=== PATIENT | female | born 1945 | race Caucasian/White ===

== ENCOUNTER 2017-09-07 13:07 | Emergency (ER) | payer MEDICARE ==
[~2017-09-07] VITALS: Ht 165.1 cm; Wt 90.0 kg
[~2017-09-07 13:07] MED LIST: ADLT ASA LOW81 MG PO; AMILORIDE5 MG PO; AMOXIL500 MG OR; ATROVENT NAS0.03 %; AUGMENTIN500TAB PO; AVELOX400 MG PO; AZITHROMYCIN250 MG PO; BABY ASPIRIN81 MG PO; CYCLOBENZAPR5 MG PO; DEXAMETHASON2 MG PO; DEXAMETHASON4 MG PO; FLEXERIL OR; FLEXERIL5 MG PO; HYDROCHLOROT25 MG OR; HYDROCHLOROT25 MG PO; KLOR-CON M2020 MEQ PO; LISINOPRIL10 MG PO; LORTAB 7.5 PO; LORTAB5 PO; MAGNESIUM-OX400 MG PO; MEDDOSEPAK OR; MELOXICAM15 MG PO; METOPROLOL SUCC50 MG PO; MUCINEX600 MG OR; NITROFURANTN100 M2 PO; PERCOCET 5/325M1 TAB PO; PREDNISONE10 MG PO; PROAIR HFA IN; PT DOESN'T KNOW MEDS; REVLIMID15 MG PO; SPIRIVA HANDIHALER INH; SPIRIVA IN; TOPROL XL25 MG OR; TRAMADOL HCL50 MG PO; ULTRAM50 MG OR; VELCADE3.5 MG IV; ZESTRIL10 M1 PO; ZESTRIL5 M1 PO; ZITHROMAX250 MG PO; ZOFRAN ODT4 MG SL; ZOMETA4 MG/5 ML IV; ZOVIRAX800 MG PO
[2017-09-07] MEDS ORDERED: ULTRAM50 M1 PO (14:26)
[2017-09-07] MEDS ORDERED: MEDDOSEPAK PO (14:26)
[2017-09-07] MEDS ORDERED: DEXAMETHASON2 MG PO (14:52)
[2017-09-07 15:11] VITALS: BP 138/85
== END 2017-09-07 15:00 | disposition home or self-care (01) ==
LOC: ED 13:07
DX: M19.031 Primary osteoarthritis, right wrist (principal); M25.531 Pain in right wrist

== ENCOUNTER 2018-03-21 05:28 | Observation (INO) | payer MEDICARE ==
[~2018-03-21] VITALS: Ht 165.1 cm; Wt 90.0 kg
[~2018-03-21 05:28] MED LIST changes: +MEDDOSEPAK PO; +ULTRAM50 M1 PO
[2018-03-21 06:41] LABS: HEMATOCRIT 34.4 % (37.0-47.0); IMMATURE GRANULOCYTES 0.7 % (0.0-1.0); MEAN CELL VOLUME 100.6 fL CALC (80.0-100.0); MEAN CORPUSCULAR HGB 32.2 pG CALC (26.0-32.0); NEUT# 2.96 thou/uL (2.00-7.15); RED BLOOD COUNT 3.42 mill/uL (4.20-5.60); RED CELL DISTRI WIDTH 14.1 % (11.5-15.5)
[2018-03-21 06:47] LABS: ALBUMIN 3.3 g/dL (3.2-5.0); ALKALINE PHOSPHATASE 168 u/l (38-126); ANION GAP 11 (6-22 (CALC)); BILIRUBIN, TOTAL 0.6 mg/dL (0.0-1.4); BUN 17 mg/dL (8-23); BUN/CREATININE RATIO 24 (12-20 (CALC)); CARBON DIOXIDE 29 mmol/l (22-30); CHLORIDE 108 mmol/l (95-108); CREATININE 0.7 mg/dL (0.5-1.0); GFR > 60 ML/MIN (>=60 (CALC)); GFR FOR AFR.AMER. > 60 ML/MIN (>=60 (CALC)); POTASSIUM 3.4 mmol/l (3.5-5.1); SGOT/AST 44 u/l (9-36); SGPT/ALT 57 u/l (11-66); SODIUM 144 mmol/l (137-146); TOTAL PROTEIN 6.1 g/dL (6.3-8.2)
[2018-03-21 06:57] LABS: D-DIMER 0.67 mg/L (0.19-0.60); PROTHROMBIN TIME 11.2 SECONDS (9.0-12.5)
[2018-03-21] MEDS ORDERED: [UNRECOGNIZED DRUG - OTHER] (07:07)
[2018-03-21 10:45] VITALS: BP 142/70
[2018-03-21 12:05] LABS: CHOLESTEROL HDL RATIO 2.1 (<4.4 (CALC)); MAGNESIUM 1.7 mg/dL (1.6-2.3)
[2018-03-21 16:23] VITALS: BP 127/54
[2018-03-21] MEDS ORDERED: LENALIDOMIDE PO (16:25)
[2018-03-21] MEDS ORDERED: LASIX20 MG PO (17:11)
[2018-03-21 20:00] VITALS: BP 129/67
[2018-03-22 00:08] VITALS: BP 134/57
[2018-03-22 04:26] VITALS: BP 137/75
[2018-03-22 06:16] LABS: HEMATOCRIT 31.3 % (37.0-47.0); HEMOGLOBIN 10.1 g/dl (12.0-16.0); IMMATURE GRANULOCYTES 0.6 % (0.0-1.0); MEAN CELL VOLUME 100.3 fL CALC (80.0-100.0); MEAN CORPUSCULAR HGB 32.4 pG CALC (26.0-32.0); MEAN CORPUSCULAR HGB CONC 32.3 g/L CALC (32.0-36.0); NEUT# 2.51 thou/uL (2.00-7.15); RED BLOOD COUNT 3.12 mill/uL (4.20-5.60); RED CELL DISTRI WIDTH 14.3 % (11.5-15.5)
[2018-03-22 06:27] LABS: ANION GAP 11 (6-22 (CALC)); BUN 14 mg/dL (8-23); BUN/CREATININE RATIO 20 (12-20 (CALC)); CARBON DIOXIDE 27 mmol/l (22-30); CHLORIDE 110 mmol/l (95-108); CREATININE 0.7 mg/dL (0.5-1.0); GFR > 60 ML/MIN (>=60 (CALC)); GFR FOR AFR.AMER. > 60 ML/MIN (>=60 (CALC)); MAGNESIUM 1.6 mg/dL (1.6-2.3); POTASSIUM 3.5 mmol/l (3.5-5.1); SODIUM 144 mmol/l (137-146)
[2018-03-22 07:45] VITALS: BP 140/73
[2018-03-22 11:00] VITALS: BP 144/74
== END 2018-03-22 13:40 | disposition home or self-care (01) ==
LOC: ED 05:28 → ED-I 09:13 → ED 09:26 → MS2 09:27
PROVIDERS: Family Medicine; Nurse Practitioner Family; ADMIT Internal Medicine; ATTEND Internal Medicine
DX: R07.9 Chest pain, unspecified (principal); M25.512 Pain in left shoulder; C90.00 Multiple myeloma not having achieved remission; I10 Essential (primary) hypertension; M19.90 Unspecified osteoarthritis, unspecified site; J44.9 Chronic obstructive pulmonary disease, unspecified; E87.6 Hypokalemia; D61.818 Other pancytopenia; D64.9 Anemia, unspecified; Z79.899 Other long term (current) drug therapy; Z87.891 Personal history of nicotine dependence; R06.02 Shortness of breath
CPT/HCPCS: Q9967

== ENCOUNTER 2018-05-02 12:37 | Emergency (ER) | payer MEDICARE ==
[~2018-05-02] VITALS: Ht 165.1 cm; Wt 100.0 kg
[~2018-05-02 12:37] MED LIST changes: +LASIX20 MG PO; +LENALIDOMIDE PO; +[UNRECOGNIZED DRUG - OTHER]
[2018-05-02 13:14] LABS: HEMATOCRIT 36.1 % (37.0-47.0); HEMOGLOBIN 11.4 g/dl (12.0-16.0); IMMATURE GRANULOCYTES 0.4 % (0.0-1.0); MEAN CELL VOLUME 99.2 fL CALC (80.0-100.0); MEAN CORPUSCULAR HGB 31.3 pG CALC (26.0-32.0); MEAN CORPUSCULAR HGB CONC 31.6 g/L CALC (32.0-36.0); NEUT# 3.11 thou/uL (2.00-7.15); RED BLOOD COUNT 3.64 mill/uL (4.20-5.60); RED CELL DISTRI WIDTH 14.7 % (11.5-15.5)
[2018-05-02 13:30] LABS: ALBUMIN 3.6 g/dL (3.2-5.0); BILIRUBIN, TOTAL 1.3 mg/dL (0.0-1.4); CREATININE 1.3 mg/dL (0.5-1.0); POTASSIUM 4.2 mmol/l (3.5-5.1); TOTAL PROTEIN 6.9 g/dL (6.3-8.2)
[2018-05-02] MEDS ORDERED: CARBAMAZEPIN100 M1 PO (14:39)
[2018-05-02 14:41] VITALS: BP 137/60
== END 2018-05-02 15:06 | disposition home or self-care (01) ==
LOC: ED 12:37
PROVIDERS: Emergency Medicine
DX: R06.00 Dyspnea, unspecified (principal); B02.29 Other postherpetic nervous system involvement; M19.90 Unspecified osteoarthritis, unspecified site; I10 Essential (primary) hypertension; J44.9 Chronic obstructive pulmonary disease, unspecified; C90.00 Multiple myeloma not having achieved remission; Z92.21 Personal history of antineoplastic chemotherapy

== ENCOUNTER 2018-05-05 06:56 | Emergency (ER) | payer MEDICARE ==
[~2018-05-05] VITALS: Ht 165.1 cm; Wt 88.6 kg
[~2018-05-05 06:56] MED LIST changes: +CARBAMAZEPIN100 M1 PO
[2018-05-05 07:43] LABS: ALBUMIN 3.8 g/dL (3.2-5.0); BILIRUBIN, TOTAL 0.9 mg/dL (0.0-1.4); CREATININE 1.5 mg/dL (0.5-1.0); POTASSIUM 4.3 mmol/l (3.5-5.1); TOTAL PROTEIN 6.9 g/dL (6.3-8.2)
[2018-05-05 08:18] VITALS: BP 113/56
== END 2018-05-05 08:32 | disposition home or self-care (01) ==
LOC: ED 06:56 → ED-I 07:57 → ED 08:32
PROVIDERS: Emergency Medicine
DX: B02.29 Other postherpetic nervous system involvement (principal); R60.0 Localized edema; I10 Essential (primary) hypertension; J44.9 Chronic obstructive pulmonary disease, unspecified; C90.00 Multiple myeloma not having achieved remission; M19.90 Unspecified osteoarthritis, unspecified site; N28.9 Disorder of kidney and ureter, unspecified; Z91.14 Patient's other noncompliance with medication regimen; Z79.899 Other long term (current) drug therapy; R06.02 Shortness of breath

== ENCOUNTER 2018-07-25 20:41 | Emergency (ER) | payer OTHER, MEDICARE ==
[~2018-07-25] VITALS: Ht 165.1 cm; Wt 79.5 kg
[~2018-07-25 20:41] MED LIST changes: -LENALIDOMIDE PO; +REVLIMID PO
[2018-07-25 21:11] LABS: HEMATOCRIT 38.8 % (37.0-47.0); HEMOGLOBIN 12.4 g/dl (12.0-16.0); IMMATURE GRANULOCYTES 0.4 % (0.0-5.0); MEAN CELL VOLUME 96.5 fL CALC (80.0-100.0); MEAN CORPUSCULAR HGB 30.8 pG CALC (26.0-32.0); NEUT# 3.88 thou/uL (2.00-7.15); RED BLOOD COUNT 4.02 mill/uL (4.20-5.60); RED CELL DISTRI WIDTH 14.4 % (11.5-15.5)
[2018-07-25 21:30] LABS: ALBUMIN 3.7 g/dL (3.2-5.0); ALKALINE PHOSPHATASE 168 u/l (38-126); ANION GAP 9 (6-22 (CALC)); BILIRUBIN, TOTAL 0.9 mg/dL (0.0-1.4); BUN 13 mg/dL (8-23); BUN/CREATININE RATIO 18 (12-20 (CALC)); CARBON DIOXIDE 32 mmol/l (22-30); CHLORIDE 108 mmol/l (95-108); CREATININE 0.7 mg/dL (0.5-1.0); GFR > 60 ML/MIN (>=60 (CALC)); GFR FOR AFR.AMER. > 60 ML/MIN (>=60 (CALC)); SGOT/AST 54 u/l (9-36); SGPT/ALT 51 u/l (11-66); SODIUM 146 mmol/l (137-146); TOTAL PROTEIN 6.6 g/dL (6.3-8.2)
[2018-07-25 21:33] LABS: POTASSIUM 3.2 mmol/l (3.5-5.1)
[2018-07-25 22:39] LABS: URINE BILIRUBIN - DIPSTICK NEGATIVE (NEGATIVE); URINE BLOOD DIPSTICK TRACE-LYSED (NEGATIVE); URINE COLOR YELLOW; URINE GLUCOSE - DIPSTICK NEGATIVE (NEGATIVE); URINE KETONE NEGATIVE (NEGATIVE); URINE NITRITE - DIPSTICK NEGATIVE (Negative); URINE PROTEIN - DIPSTICK TRACE mg/dL (NEG-TRACE); URINE SPECIFIC GRAVITY 1.015; URINE UROBILINOGEN - DIPSTICK 0.2 E.U./dL (0.2)
[2018-07-25 22:40] LABS: URINE CLARITY CLOUDY; URINE LEUK ESTERASE SMALL (NEGATIVE)
[2018-07-25 22:45] LABS: URINE BACTERIA FEW hpf; URINE SQUAMOUS EPITHELIAL CELL MODERATE EPI/hpf (0-FEW)
[2018-07-25] MEDS ORDERED: FLEXERIL PO (23:42)
[2018-07-25] MEDS ORDERED: CIPROFLOXACN500 MG PO (23:42)
[2018-07-26 04:40] VITALS: BP 149/65
[2018-07-26] MEDS ORDERED: NAPROSYN500 MG PO (20:13)
== END 2018-07-26 00:34 | disposition home or self-care (01) | DRG 605 ==
LOC: ED 20:41
PROVIDERS: Emergency Medicine
DX: S30.1XXA Contusion of abdominal wall, initial encounter (principal); M47.812 Spondylosis without myelopathy or radiculopathy, cervical region; N39.0 Urinary tract infection, site not specified; C90.00 Multiple myeloma not having achieved remission; I10 Essential (primary) hypertension; J44.9 Chronic obstructive pulmonary disease, unspecified; V49.40XA Driver injured in collision with unspecified motor vehicles in traffic accident, initial encounter
CPT/HCPCS: Q9967

== ENCOUNTER 2018-07-26 19:10 | Emergency (ER) | payer OTHER, MEDICARE ==
[~2018-07-26] VITALS: Ht 165.1 cm; Wt 83.0 kg
[~2018-07-26 19:10] MED LIST changes: +CIPROFLOXACN500 MG PO; +FLEXERIL PO
[2018-07-26 20:11] VITALS: BP 128/66
[2018-07-26] MEDS ORDERED: NAPROSYN500 MG PO (20:13)
== END 2018-07-26 20:24 | disposition home or self-care (01) | DRG 554 ==
LOC: ED 19:10
DX: M19.031 Primary osteoarthritis, right wrist (principal); C90.00 Multiple myeloma not having achieved remission; I10 Essential (primary) hypertension; M19.90 Unspecified osteoarthritis, unspecified site; J44.9 Chronic obstructive pulmonary disease, unspecified; V89.2XXA Person injured in unspecified motor-vehicle accident, traffic, initial encounter

== ENCOUNTER 2018-07-30 02:16 | Emergency (ER) | payer OTHER, MEDICARE ==
[~2018-07-30] VITALS: Ht 165.1 cm; Wt 81.0 kg
[~2018-07-30 02:16] MED LIST changes: +NAPROSYN500 MG PO
[2018-07-30 03:37] VITALS: BP 128/64
== END 2018-07-30 03:30 | disposition home or self-care (01) | DRG 605 ==
LOC: ED 02:16
DX: S60.211A Contusion of right wrist, initial encounter (principal); S20.219A Contusion of unspecified front wall of thorax, initial encounter; C90.00 Multiple myeloma not having achieved remission; I10 Essential (primary) hypertension; J44.9 Chronic obstructive pulmonary disease, unspecified; M19.90 Unspecified osteoarthritis, unspecified site; V89.2XXA Person injured in unspecified motor-vehicle accident, traffic, initial encounter; Z92.21 Personal history of antineoplastic chemotherapy

== ENCOUNTER → 2018-08-10 | Outpatient (REF) | payer MEDICARE | END | disposition home or self-care (01) | LOC: MAMMO 10:49 | PROVIDERS: ATTEND Internal Medicine | DX: Z12.31 Encounter for screening mammogram for malignant neoplasm of breast (principal); N95.1 Menopausal and female climacteric states ==

== ENCOUNTER 2019-03-01 07:39 | Emergency (ER) | payer MEDICARE ==
[~2019-03-01] VITALS: Ht 165.1 cm; Wt 90.0 kg
[2019-03-01] MEDS ORDERED: OXYCODONE HCL5 MG PO (10:36)
[2019-03-01] MEDS ORDERED: MOTRIN400 MG PO (10:42)
[2019-03-01] MEDS ORDERED: CYCLOBENZAPR5 MG PO (10:42)
[2019-03-01 11:04] VITALS: BP 117/59
== END 2019-03-01 11:04 | disposition home or self-care (01) ==
LOC: ED 07:39
DX: M54.5 Low back pain (principal); M62.830 Muscle spasm of back; M51.36 Other intervertebral disc degeneration, lumbar region

== ENCOUNTER 2019-03-12 08:44 | Emergency (ER) | payer MEDICARE ==
[~2019-03-12] VITALS: Ht 165.1 cm; Wt 84.0 kg
[~2019-03-12 08:44] MED LIST changes: +MOTRIN400 MG PO; +OXYCODONE10 M1 PO
[2019-03-12] MEDS ORDERED: MAGNESIUM400 M1 PO (09:43)
[2019-03-12] MEDS ORDERED: VITAMIN D-3400 UNIT PO (09:44)
[2019-03-12 10:20] LABS: HEMATOCRIT 36.3 % (37.0-47.0); IMMATURE GRANULOCYTES 0.4 % (0.0-5.0); MEAN CELL VOLUME 95.3 fL CALC (80.0-100.0); MEAN CORPUSCULAR HGB 31.5 pG CALC (26.0-32.0); MEAN CORPUSCULAR HGB CONC 33.1 g/L CALC (32.0-36.0); NEUT# 4.99 thou/uL (2.00-7.15); RED BLOOD COUNT 3.81 mill/uL (4.20-5.60); RED CELL DISTRI WIDTH 14.2 % (11.5-15.5)
[2019-03-12 10:24] LABS: ALBUMIN 3.3 g/dL (3.2-5.0); ALKALINE PHOSPHATASE 163 u/l (38-126); ANION GAP 9 (6-22 (CALC)); BUN 13 mg/dL (8-23); BUN/CREATININE RATIO 21 (12-20 (CALC)); CARBON DIOXIDE 28 mmol/l (22-30); CHLORIDE 106 mmol/l (95-108); CREATININE 0.6 mg/dL (0.5-1.0); GFR > 60 ML/MIN (>=60 (CALC)); GFR FOR AFR.AMER. > 60 ML/MIN (>=60 (CALC)); POTASSIUM 3.5 mmol/l (3.5-5.1); SGOT/AST 42 u/l (9-36); SODIUM 140 mmol/l (137-146)
[2019-03-12 10:28] LABS: BILIRUBIN, TOTAL 1.4 mg/dL (0.0-1.4)
[2019-03-12 12:38] LABS: URINE BILIRUBIN - DIPSTICK NEGATIVE (NEGATIVE); URINE BLOOD DIPSTICK MODERATE (NEGATIVE); URINE CLARITY SL CLOUDY; URINE COLOR DK. YELLOW; URINE GLUCOSE - DIPSTICK NEGATIVE (NEGATIVE); URINE KETONE NEGATIVE (NEGATIVE); URINE LEUK ESTERASE TRACE (Negative); URINE NITRITE - DIPSTICK NEGATIVE (Negative); URINE PROTEIN - DIPSTICK NEGATIVE (NEG-TRACE); URINE SPECIFIC GRAVITY 1.025; URINE UROBILINOGEN - DIPSTICK 0.2 E.U./dL (0.2)
[2019-03-12 12:39] LABS: URINE EPITHELIAL CELLS FEW EPI/hpf (0-FEW); URINE WBC 0-2 WBC/hpf (0-5)
[2019-03-12] MEDS ORDERED: ULTRAM50 MG PO (12:49)
[2019-03-12] MEDS ORDERED: MEDDOSEPAK PO (12:49)
[2019-03-12] MEDS ORDERED: FLEXERIL PO ×2 (12:49→12:50)
[2019-03-12 12:53] VITALS: BP 127/60
== END 2019-03-12 13:05 | disposition home or self-care (01) ==
LOC: ED 08:44
PROVIDERS: Emergency Medicine
DX: M51.36 Other intervertebral disc degeneration, lumbar region (principal); M62.830 Muscle spasm of back; R50.9 Fever, unspecified

== ENCOUNTER 2019-03-21 13:43 | Emergency (ER) | payer MEDICARE ==
[~2019-03-21] VITALS: Ht 165.1 cm; Wt 82.0 kg
[~2019-03-21 13:43] MED LIST changes: +MAGNESIUM400 M1 PO; +ULTRAM50 MG PO; +VITAMIN D-3400 UNIT PO
[2019-03-21 15:00] LABS: HEMOGLOBIN 13.8 g/dl (12.0-16.0); IMMATURE GRANULOCYTES 0.5 % (0.0-5.0); MEAN CELL VOLUME 96.8 fL CALC (80.0-100.0); MEAN CORPUSCULAR HGB 31.2 pG CALC (26.0-32.0); MEAN CORPUSCULAR HGB CONC 32.2 g/L CALC (32.0-36.0); NEUT# 8.71 thou/uL (2.00-7.15); RED BLOOD COUNT 4.43 mill/uL (4.20-5.60); RED CELL DISTRI WIDTH 14.3 % (11.5-15.5)
[2019-03-21 15:01] LABS: HEMATOCRIT 42.9 % (37.0-47.0)
[2019-03-21 15:16] LABS: ALBUMIN 3.8 g/dL (3.2-5.0); ALKALINE PHOSPHATASE 154 u/l (38-126); ANION GAP 11 (6-22 (CALC)); BILIRUBIN, TOTAL 1.4 mg/dL (0.0-1.4); BUN 17 mg/dL (8-23); BUN/CREATININE RATIO 21 (12-20 (CALC)); CARBON DIOXIDE 29 mmol/l (22-30); CHLORIDE 103 mmol/l (95-108); CREATININE 0.8 mg/dL (0.5-1.0); GFR > 60 ML/MIN (>=60 (CALC)); GFR FOR AFR.AMER. > 60 ML/MIN (>=60 (CALC)); SGOT/AST 40 u/l (9-36); SODIUM 138 mmol/l (137-146); TOTAL PROTEIN 6.6 g/dL (6.3-8.2)
[2019-03-21 15:18] LABS: POTASSIUM 4.6 mmol/l (3.5-5.1)
[2019-03-21] MEDS ORDERED: DURAGESIC100 MCG/HR TOP (15:39)
[2019-03-21 15:40] VITALS: BP 122/62
[2019-03-21] MEDS ORDERED: FENTANYL50 MCG/HR TD (15:42)
== END 2019-03-21 16:14 | disposition home or self-care (01) ==
LOC: ED 13:43
PROVIDERS: Family Medicine
DX: M25.551 Pain in right hip (principal); R10.2 Pelvic and perineal pain; M19.90 Unspecified osteoarthritis, unspecified site; I10 Essential (primary) hypertension; J44.9 Chronic obstructive pulmonary disease, unspecified; C90.00 Multiple myeloma not having achieved remission

== ENCOUNTER 2019-11-06 | Emergency (ER) | payer MEDICARE ==
[~2019-11-06] MED LIST changes: +DURAGESIC100 MCG/HR TOP; +FENTANYL50 MCG/HR TD
== END 2019-11-06 20:08 | disposition home or self-care (01) ==
DX: S32.040A Wedge compression fracture of fourth lumbar vertebra, initial encounter for closed fracture (principal); I10 Essential (primary) hypertension; J44.9 Chronic obstructive pulmonary disease, unspecified; W01.0XXA Fall on same level from slipping, tripping and stumbling without subsequent striking against object, initial encounter; Y92.009 Unspecified place in unspecified non-institutional (private) residence as the place of occurrence of the external cause

== ENCOUNTER 2020-02-10 | Emergency (ER) | payer MEDICARE ==
[2020-02-10] MEDS ORDERED: KEFLEX500 MG PO (04:56)
== END 2020-02-10 05:05 | disposition home or self-care (01) ==
DX: C90.00 Multiple myeloma not having achieved remission (principal); M19.032 Primary osteoarthritis, left wrist; L03.114 Cellulitis of left upper limb; I10 Essential (primary) hypertension; J44.9 Chronic obstructive pulmonary disease, unspecified

== ENCOUNTER 2020-05-18 06:08 | Emergency (ER) | payer MEDICARE ==
[~2020-05-18] VITALS: Ht 165.1 cm; Wt 82.0 kg
[~2020-05-18 06:08] MED LIST changes: +KEFLEX500 MG PO
[2020-05-18 07:01] LABS: HEMATOCRIT 30.1 % (37.0-47.0); HEMOGLOBIN 9.7 g/dl (12.0-16.0); IMMATURE GRANULOCYTES 0.2 % (0.0-5.0); MEAN CELL VOLUME 98.7 fL CALC (80.0-100.0); MEAN CORPUSCULAR HGB 31.8 pG CALC (26.0-32.0); MEAN CORPUSCULAR HGB CONC 32.2 g/dL CAL (32.0-36.0); NEUT# 3.12 thou/uL (2.00-7.15); RED BLOOD COUNT 3.05 mill/uL (4.20-5.60); RED CELL DISTRI WIDTH 16.6 % (11.5-15.5)
[2020-05-18 07:17] LABS: ALBUMIN 3.1 g/dL (3.2-5.0); ALKALINE PHOSPHATASE 130 u/l (38-126); ANION GAP 5 (6-22 (CALC)); BILIRUBIN, TOTAL 1.5 mg/dL (0.0-1.4); BUN 15 mg/dL (8-23); BUN/CREATININE RATIO 22 (12-20 (CALC)); CARBON DIOXIDE 26 mmol/l (22-30); CHLORIDE 109 mmol/l (95-108); CREATININE 0.7 mg/dL (0.5-1.0); GFR > 60 ML/MIN (>=60 (CALC)); GFR FOR AFR.AMER. > 60 ML/MIN (>=60 (CALC)); POTASSIUM 3.2 mmol/l (3.5-5.1); SGOT/AST 34 u/l (9-36); SODIUM 138 mmol/l (137-146); TOTAL PROTEIN 5.5 g/dL (6.3-8.2)
[2020-05-18 08:59] LABS: URINE BILIRUBIN - DIPSTICK NEGATIVE (NEGATIVE); URINE BLOOD DIPSTICK TRACE-INTACT (NEGATIVE); URINE GLUCOSE - DIPSTICK NEGATIVE (NEGATIVE); URINE KETONE TRACE mg/dL (NEGATIVE); URINE LEUK ESTERASE NEGATIVE (NEGATIVE); URINE NITRITE - DIPSTICK NEGATIVE (Negative); URINE PH 5.5 (4.5-8.0); URINE PROTEIN - DIPSTICK NEGATIVE (NEG-TRACE); URINE SPECIFIC GRAVITY >=1.030; URINE UROBILINOGEN - DIPSTICK 0.2 E.U./dL (0.2)
[2020-05-18 09:02] LABS: URINE COLOR DK. YELLOW
[2020-05-18] MEDS ORDERED: IBUPROFEN600 MG PO ×2 (09:17)
[2020-05-18 09:21] VITALS: BP 137/63
== END 2020-05-18 09:33 | disposition home or self-care (01) ==
LOC: ED 06:08
PROVIDERS: Emergency Medicine
DX: S16.1XXA Strain of muscle, fascia and tendon at neck level, initial encounter (principal); I10 Essential (primary) hypertension; J44.9 Chronic obstructive pulmonary disease, unspecified; C90.00 Multiple myeloma not having achieved remission; G89.29 Other chronic pain; X58.XXXA Exposure to other specified factors, initial encounter; Z79.891 Long term (current) use of opiate analgesic

== ENCOUNTER 2020-08-08 10:37 | Observation (INO) | payer MEDICARE ==
[~2020-08-08] VITALS: Ht 165.1 cm; Wt 82.2 kg
[~2020-08-08 10:37] MED LIST changes: +IBUPROFEN600 MG PO
--- NOTE | 2020-08-08 10:45 | NUR ---
PT TO RM 9 VIA W/C AND PLACED ON PLANNING TECHNICIAN.
--- NOTE | 2020-08-08 11:41 | NUR ---
PT IS GAURDED AND STIFF FROM THE RIGHT ARM AND NECK. SHE STATES HAVING 10/10 PAIN. DENIES ANY OTHER S/S OR PAINS. PMS+ IN ALL EXTREM. REDNESS AND SWELLING NOTED ON THE RIGHT ADDISON. AFIBRILE. WILL CONTINUE TO MONITOR.
[2020-08-08 11:56] LABS: HEMATOCRIT 32.5 % (37.0-47.0); HEMOGLOBIN 10.5 g/dl (12.0-16.0); IMMATURE GRANULOCYTES 0.4 % (0.0-5.0); MEAN CORPUSCULAR HGB 32.3 pG CALC (26.0-32.0); MEAN CORPUSCULAR HGB CONC 32.3 g/dL CAL (32.0-36.0); NEUT# 3.48 thou/uL (2.00-7.15); RED BLOOD COUNT 3.25 mill/uL (4.20-5.60); RED CELL DISTRI WIDTH 14.6 % (11.5-15.5)
[2020-08-08 12:11] LABS: ALBUMIN 3.3 g/dL (3.2-5.0); ALKALINE PHOSPHATASE 188 u/l (38-126); ANION GAP 8 (6-22 (CALC)); BUN 13 mg/dL (8-23); BUN/CREATININE RATIO 17 (12-20 (CALC)); CARBON DIOXIDE 31 mmol/l (22-30); CHLORIDE 102 mmol/l (95-108); CREATININE 0.7 mg/dL (0.5-1.0); GFR > 60 ML/MIN (>=60 (CALC)); GFR FOR AFR.AMER. > 60 ML/MIN (>=60 (CALC)); POTASSIUM 3.2 mmol/l (3.5-5.1); SGOT/AST 48 u/l (9-36); SODIUM 138 mmol/l (137-146); TOTAL PROTEIN 6.1 g/dL (6.3-8.2)
[2020-08-08 12:12] LABS: BILIRUBIN, TOTAL 1.8 mg/dL (0.0-1.4)
--- NOTE | 2020-08-08 12:50 | NUR ---
PT ASSISTED TO BR VIA W/C. PROVIDED URINE. DARK YELLOW NOT CLOUDY. PT ASSISTED BACK TO ROOM AND RECONNECTED TO MONITORING EQUIPMENT
[2020-08-08 13:26] LABS: URINE BILIRUBIN - DIPSTICK NEGATIVE (NEGATIVE); URINE BLOOD DIPSTICK SMALL (NEGATIVE); URINE COLOR YELLOW; URINE GLUCOSE - DIPSTICK NEGATIVE (NEGATIVE); URINE KETONE NEGATIVE (NEGATIVE); URINE LEUK ESTERASE NEGATIVE (NEGATIVE); URINE NITRITE - DIPSTICK NEGATIVE (Negative); URINE PROTEIN - DIPSTICK NEGATIVE (NEG-TRACE); URINE SPECIFIC GRAVITY 1.015; URINE UROBILINOGEN - DIPSTICK 0.2 E.U./dL (0.2)
[2020-08-08 13:29] LABS: URINE EPITHELIAL CELLS FEW EPI/hpf (0-FEW); URINE RBC 0-2 RBC/hpf (0-5)
--- NOTE | 2020-08-08 13:50 | NUR ---
UPON REASSESSMENT PT STATES THAT HER PAIN IS A 8/10. DENIES ANY OTHER NEEDS
--- NOTE | 2020-08-08 14:30 | NUR ---
PT REMINDED OF PENDING ADMISSIONA AND WAIT TIME. WILL CONTINUE TO MONITOR.
--- NOTE | 2020-08-08 15:30 | NUR ---
PT RESTING ON STRETCHER. STATES PAIN REMAINS THE SAME. CALL LIGHT WITHIN REACH. ADISED OF CONTINUED WAIT
--- NOTE | 2020-08-08 16:40 | NUR ---
GAVE REPORT TO MARLY AND SHE STATES THAT ROOM IS DIRTY AND HAS TO BE CLEANED. PT UPDATED ON WAIT
--- NOTE | 2020-08-08 17:40 | NUR ---
PT TRANSPORTED TO MED SURG STABLE AND IN NO DISTRESS BY BUBBA.W/C. CARE ASSUMED BY MARLY
--- NOTE | 2020-08-08 17:47 | NUR ---
PT ARRIVED TO UNIT VIA WHEELCHAIR WITH ER STAFF; ALERT AND OREINTED X 3. PLACED IN AIRBORNE/CONTACT ISOLATION FOR SHINGLES. C/O SEVERE 10/10 PAIN TO RIGHT SHOULDER; REPORTS THAT SHE HAS HAD CHRONIC RIGHT SHOULDER PAIN FOR 4 YEARS THAT IS EXACERBATED AT THIS TIME AFTER SHE HAD SHINGLES. REPORTED AREA OF SINGLESI IS IN LEFT AXILLA; PHOTO TAKEN AND PLACED IN CHART. RESPIRATIONS SLIGHTLY LABORED; PT FREQUENTLY MOANING LOUDLY AND STATES THAT HER MILD SOB IS RELATED TO HER PAIN. IV SITE TO LAC APPEARS HEALTHY AND FLUSHES. RLE IS RED AND HOT WITH 2+ PITTING EDEMA; LLE NORMAL WITH 1+ ANKLE EDEMA; RIGHT LEG LARGER THAN LEFT; PHOTO IN CHART. PT ORIENTED TO ROOM AND CALL LIGHT SYSTEM. PLAN OF CARE DISCUSSED. PT ENCOURAGED TO VERBALIZE CONCERNS; REQUESTS PAIN MEDICATION. SAFETY MEASURES IN PLACE. CALL LIGHT WITHIN REACH.
[2020-08-08 18:09] VITALS: BP 112/55
[2020-08-08] MEDS ORDERED: BUMETANIDE1 MG PO (18:20)
[2020-08-08 19:00] VITALS: BP 121/63
--- NOTE | 2020-08-08 19:35 | NUR ---
MORPHINE AND ROXICODONE GIVEN FOR 10/10 RIGHT SHOULDER PAIN. PT RESTING ON LEFT SIDE AND GUARDING SHOULDER. CALL LIGHT WITHIN REACH.
--- NOTE | 2020-08-08 20:01 | NUR ---
RECEIEVED REPORT FROM DEMETRICE FINLEY. ASSESSMENT AND VITALS COMPLETED. RESPIRATIONS ARE STRONG BILATERALLY. LUNG SOUNDS ARE CLEAR. HEART RHYTHM IS NORMAL. BOWEL SOUNDS ARE ACTIVE, LAST REPORTED BM 08/07/20. RADIAL AND PEDAL PULSES ARE STRONG WITH NORMAL CPAILLARY REFILL. #20 IN LAC SALINE LOCKED, SITE APPEARS HEALTHY AND PATENT. PT PRESENTS WITH WOUND VAC ON RIGHT LEG. PT REPORTS PAIN IS MANAGED SINCE RECEIVING PNR MEDICATION JUST BEFORE SHIFT CHANGE. PT DENIES DISCOMFORTS AT THIS TIME. ALL SAFETY AND ISOLATION PRECAUTIONS ARE IN PLACE. WILL CONTINUE TO MONITOR.
--- NOTE | 2020-08-08 20:01 | NUR ---
RECEIEVED REPORT FROM DEMETRICE FINLEY. ASSESSMENT AND VITALS COMPLETED. RESPIRATIONS ARE STRONG BILATERALLY. LUNG SOUNDS ARE CLEAR. HEART RHYTHM IS NORMAL. BOWEL SOUNDS ARE ACTIVE, LAST REPORTED BM 08/07/20. RADIAL AND PEDAL PULSES ARE STRONG WITH NORMAL CPAILLARY REFILL. #20 IN LAC SALINE LOCKED, SITE APPEARS HEALTHY AND PATENT. PT REPORTS PAIN IS MANAGED SINCE RECEIVING PNR MEDICATION JUST BEFORE SHIFT CHANGE. PT DENIES DISCOMFORTS AT THIS TIME. ALL SAFETY AND ISOLATION PRECAUTIONS ARE IN PLACE. WILL CONTINUE TO MONITOR.
[2020-08-09] VITALS: BP 111/67
--- NOTE | 2020-08-09 00:29 | NUR ---
PT SEEN EYED CLOSED IN NO APPARENT DISTRESS OR DISCOMFORT. CALL GARCIA WITHIN REACH. WILL CONTINUE TO MONITOR.
[2020-08-09 04:00] VITALS: BP 127/75
--- NOTE | 2020-08-09 04:01 | NUR ---
PT REMAINS RESTING WITH EYES CLOSED. NO SIGNS OF DISTRESS. CALL LIGHT WITHIN REACH. WILL CONTINUE TO MONITOR.
--- NOTE | 2020-08-09 07:34 | NUR ---
PT note This patient is screeed for PT intervention and it is felt she would benefit from PT intervention as an outpatient for her right shoulder pain if medical agrees and when patinet is cleared
[2020-08-09 07:41] VITALS: BP 137/76
--- NOTE | 2020-08-09 08:07 | NUR ---
ASSESSMENT DONE. PT IS A&O X3 BUT FORGETFUL AT TIMES. TELE IN PLACE. PT STATED PAIN 08/16. MEDICATED PT WITH MORPHINE. PT DENIES ANY OTHER NEEDS AT THIS TIME. CALL LIGHT IN REACH.
--- NOTE | 2020-08-09 12:00 | NUR ---
PT REFUSING LUNCH. DIRECTOR INFORMATION SECURITY IN ROOM TO TAKE PT SNACKS. PT DENIES ANY OTHER NEEDS AT THIS TIME. CALL LIGHT IN REACH.
[2020-08-09 12:03] VITALS: BP 133/74
--- NOTE | 2020-08-09 15:09 | NUR ---
PT RESTING IN BED WITH NO S/S OF DISTRESS NOTED. CALL LIGHT IN REACH.
[2020-08-09 15:50] VITALS: BP 131/73
[2020-08-09 19:00] VITALS: BP 135/75
--- NOTE | 2020-08-09 20:01 | NUR ---
RECEIEVED REPORT FROM RN. ASSESSMENT AND VITALS COMPLETED. RESPIRATIONS ARE STRONG BILATERALLY. LUNG SOUNDS ARE CLEAR. HEART RHYTHM IS NORMAL. BOWEL SOUNDS ARE ACTIVE, LAST REPORTED BM 08/08/20. RADIAL AND PEDAL PULSES ARE STRONG WITH NORMAL CPAILLARY REFILL.#20 IN LAC SALINE LOCKED, SITE APPEARS HEALTHY AND PATENT. PT REPORTS PAIN IS MANAGED SINCE RECEIVING PNR MEDICATION. PT DENIES DISCOMFORTS AT THIS TIME. PT ENCOURAGED TO REPORT ANY PAIN. ALL SAFETY AND ISOLATION PRECAUTIONS ARE IN PLACE. WILL CONTINUE TO MONITOR.
[2020-08-10] VITALS: BP 131/77
--- NOTE | 2020-08-10 | NUR ---
PT SEEN EYED CLOSED IN NO APPARENT DISTRESS OR DISCOMFORT. CALL GARCIA WITHIN REACH. WILL CONTINUE TO MONITOR.
[2020-08-10 04:00] VITALS: BP 130/80
--- NOTE | 2020-08-10 04:10 | NUR ---
PT RESTING IN BED, NO S/S OF DISTRESS AT THIS TIME. SAFETY PRECAUTIONS IN PLACE. WILL CONTINUE TO MONITOR.
[2020-08-10 07:52] VITALS: BP 133/91
--- NOTE | 2020-08-10 07:54 | NUR ---
ASSESSMENT DONE. PT IS A&O X3. PT STATED PAIN IN SHOULDER 06/16. MEDICATED PT WITH OXYCODONE. TELE IN PLACE. PRUINE PROVIDED. PT DENIES ANY OTHER NEEDS AT THIS TIME. CALL LIGHT IN REACH.
[2020-08-10 11:41] VITALS: BP 118/62
--- NOTE | 2020-08-10 12:31 | NUR ---
PT STATED PAIN IN SHOULDER. MEDICATED PT WITH MORPHINE. ENCOURAGE PT TO SIT IN THE CHAIR. PT STATED SHE HAS BEEN SITTING IN THE SIDE OF THE BED. PT DENIES ANY OTHER NEEDS THIS TIME. CALL LIGHT IN REACH.
[2020-08-10 15:44] VITALS: BP 120/65
--- NOTE | 2020-08-10 16:35 | NUR ---
MEDICATED PT WITH OXYCODONE FOR PAIN. PT DENIES ANY OTHER NEEDS AT THIS TIME. CALL LIGHT IN REACH.
[2020-08-10 19:00] VITALS: BP 113/67
--- NOTE | 2020-08-10 20:01 | NUR ---
RECEIEVED REPORT FROM RN. ASSESSMENT AND VITALS COMPLETED. RESPIRATIONS ARE STRONG BILATERALLY. LUNG SOUNDS ARE CLEAR. HEART RHYTHM IS NORMAL. TELE IN PLACE. BOWEL SOUNDS ARE ACTIVE, LAST REPORTED BM 08/09/20. RADIAL AND PEDAL PULSES ARE STRONG WITH NORMAL CPAILLARY REFILL.#20 IN LAC SALINE LOCKED, SITE APPEARS HEALTHY AND PATENT. PT REPORTS PAIN IS MANAGED SINCE RECEIVING PNR MEDICATION. PT DENIES DISCOMFORTS AT THIS TIME. PT ENCOURAGED TO REPORT ANY PAIN. ALL SAFETY AND ISOLATION PRECAUTIONS ARE IN PLACE. WILL CONTINUE TO MONITOR.
--- NOTE | 2020-08-10 23:45 | NUR ---
PT REPORT SOB AND FEELINGS OF ANXIETY. CHECKED PTS O2. PLACED HER ON 2L OF O2 UNTIL ANXIETY SUBSIDED. PT REPORTED PAIN 8/. PROVIDED PT WITH PRN PAIN MEDICATION. CALL GARCIA WITHIN REACH. WILL CONTINUE TO MONITOR.
[2020-08-11] VITALS: BP 140/85
[2020-08-11 04:00] VITALS: BP 128/74
--- NOTE | 2020-08-11 07:20 | NUR ---
REPORT RECEIVED FROM DEMETRICE VIRGEN;PT APPEARS TO BE SLEEPING IN SEMI FOWLERS POSITION;RESPIRATIONS APPEAR EVEN AND UNLABORED;NO S/S OF DISTRESS NOTED;TELE MONITORING IN PLACE;ALL SAFETY PRECAUTIONS REMAIN IN PLACE WITH BED IN THE LOWEST POSITION AND CALL LIGHT IN REACH;WILL CONTINUE TO MONITOR
[2020-08-11 09:43] VITALS: BP 142/74
--- NOTE | 2020-08-11 09:55 | NUR ---
PT RESTING IN SEMI FOWLERS POSITION,A&O X3;VS OBTAINED AND ASSESSMENT COMPLETED;PT REPORTS GENERALIZES PAIN RATING 9/10 ON THE PAIN SCALE AND REQUSTS PAIN MEDICATION,PT TO BE MEDICATED WITH PRN ROXICODONE 10MG AND FLEXERIL 5MG PO;RESPIRATIONS EVEN AND UNLABORED ON RA;ABDOMEN SOFT ON PALPATION AND ACTIVE IN ALL 4 QUADRANTS;WEAK PEDAL PULSES;TELE MONITORING IN PLACE;#20G TO LAC FLUSHED AND PATENT,SITE APPEARS HEALTHY;PT DENIES ANY ADDITIONAL NEEDS AT THIS TIME AND IS ENCOURAGED TO CALL FOR ASSISTANCE IF NEEDED;FALL PRECAUTIONS IN PLACE WITH CALL LIGHT IN REACH;WILL CONTINUE TO MONITOR
[2020-08-11 10:20] VITALS: BP 136/70
--- NOTE | 2020-08-11 12:20 | NUR ---
PT RESTING AT BEDSIDE EATING LUNCH;RESPIRATIONS EVEN AND UNLABORED ON RA;PT DENIES ANY CURRENT NEEDS;TELE MONITORING IN PLACE;IV SITE PATENT;PT ENCOURAGED TO CALL FOR ASSISTANCE IF NEEDED;FALL PRECAUTIONS REMAIN IN PLACE WITH BED IN THE LOWEST POSITION AND CALL LIGHT IN REACH;WILL CONTINUE TO MONITOR
[2020-08-11] MEDS ORDERED: CYMBALTA30 MG PO (12:33)
[2020-08-11] MEDS ORDERED: LYRICA75 MG PO (12:34)
--- NOTE | 2020-08-11 12:40 | NUR ---
BETTY ACUNA AT BEDSIDE DISCUSSING POC INCLUDING PLANS TO D/C HOME,PT VERBALIZES UNDERSTANDING.
[2020-08-11] MEDS ORDERED: MEDDOSEPAK PO (12:47)
[2020-08-11] MEDS ORDERED: FLEXERIL PO (12:47)
--- NOTE | 2020-08-11 14:07 | NUR ---
PHYSICAL THERAPY AT BEDSIDE WORKING WITH PT.
[2020-08-11 14:51] LABS: ANION GAP 7 (6-22 (CALC)); BUN 28 mg/dL (8-23); BUN/CREATININE RATIO 32 (12-20 (CALC)); CARBON DIOXIDE 33 mmol/l (22-30); CHLORIDE 105 mmol/l (95-108); CREATININE 0.9 mg/dL (0.5-1.0); GFR > 60 ML/MIN (>=60 (CALC)); GFR FOR AFR.AMER. > 60 ML/MIN (>=60 (CALC)); SODIUM 141 mmol/l (137-146)
[2020-08-11 15:20] VITALS: BP 120/68
--- NOTE | 2020-08-11 16:20 | NUR ---
PT RESTING IN SEMI FOWLERS POSITION;RESPIRATIONS EVEN AND UNLABORED ON RA;PT DENIES ANY CURRENT NEEDS;TELE MONITORING IN PLACE;IV SITE PATENT;ASSESSMENT REMAINS UNCHANGED AT THIS TIME;PT VERBALIZES UNDERSTANDING ON PLANS TO D/C HOME;ENCOURAGED TO CALL FOR ASSISTANCE IF NEEDED;FALL PRECAUTIONS IN PLACE WITH CALL LIGHT IN REACH;WILL CONTINUE TO MONITOR
--- NOTE | 2020-08-11 17:26 | NUR ---
REMOVED PATIENTS TELE AND IV AT THIS TIME AND WENT OVER DISCHARGE INSTRUCTIONS WITH PATIENT. PATIENT INFORMED 3 PERSCRIPTIONS WERE SENT TO OUTSIDE PHARMACY AND ON PAPER PRESCIPTION (LYRICIA) GIVEN. PATIENT INSTRUCTED TO FOLLOW ALL PERSCIBED MEDICATION ORDERS AND TO FOLLOW-UP WITH PCP IN ONE WEEK. PATIENT INSTRUCTED ON [facility] COMING TO HOME AND PATIENT HAD NO QUESTIONS AT THIS TIME. PATIENT ADVISED TO FOLLOW UP WITH ONGOLOGIST.
== END 2020-08-11 17:35 ==
LOC: ED 10:37 → ED-I 13:49 → ED 14:07 → MS2 14:08
PROVIDERS: Family Medicine; Nurse Practitioner; ADMIT Internal Medicine; ATTEND Internal Medicine
DX: B02.29 Other postherpetic nervous system involvement (principal); S16.1XXA Strain of muscle, fascia and tendon at neck level, initial encounter; M62.838 Other muscle spasm; M19.011 Primary osteoarthritis, right shoulder; I10 Essential (primary) hypertension; J44.9 Chronic obstructive pulmonary disease, unspecified; C90.00 Multiple myeloma not having achieved remission; F32.9 Major depressive disorder, single episode, unspecified; R60.0 Localized edema; F17.200 Nicotine dependence, unspecified, uncomplicated; Z20.828 Contact with and (suspected) exposure to other viral communicable diseases; Z87.891 Personal history of nicotine dependence; Z79.899 Other long term (current) drug therapy; X58.XXXA Exposure to other specified factors, initial encounter
CPT/HCPCS: G0378

== ENCOUNTER 2020-08-15 15:22 | Emergency (ER) | payer MEDICARE ==
[~2020-08-15] VITALS: Ht 165.1 cm; Wt 78.0 kg
[~2020-08-15 15:22] MED LIST changes: +BUMETANIDE1 MG PO; +CYMBALTA30 MG PO; +LYRICA75 MG PO
[2020-08-15 16:32] LABS: HEMATOCRIT 32.1 % (37.0-47.0); HEMOGLOBIN 10.3 g/dl (12.0-16.0); IMMATURE GRANULOCYTES 0.4 % (0.0-5.0); MEAN CELL VOLUME 100.3 fL CALC (80.0-100.0); MEAN CORPUSCULAR HGB 32.2 pG CALC (26.0-32.0); MEAN CORPUSCULAR HGB CONC 32.1 g/dL CAL (32.0-36.0); NEUT# 2.73 thou/uL (2.00-7.15); RED BLOOD COUNT 3.2 mill/uL (4.20-5.60); RED CELL DISTRI WIDTH 14.6 % (11.5-15.5)
[2020-08-15 16:48] LABS: ALBUMIN 3.3 g/dL (3.2-5.0); ALKALINE PHOSPHATASE 157 u/l (38-126); ANION GAP 6 (6-22 (CALC)); BUN 26 mg/dL (8-23); BUN/CREATININE RATIO 30 (12-20 (CALC)); CARBON DIOXIDE 38 mmol/l (22-30); CHLORIDE 99 mmol/l (95-108); CREATININE 0.9 mg/dL (0.5-1.0); GFR > 60 ML/MIN (>=60 (CALC)); GFR FOR AFR.AMER. > 60 ML/MIN (>=60 (CALC)); LIPASE 77 u/l (23-300); POTASSIUM 3.5 mmol/l (3.5-5.1); SGOT/AST 47 u/l (9-36); SODIUM 139 mmol/l (137-146); TOTAL PROTEIN 6.2 g/dL (6.3-8.2)
[2020-08-15 16:53] LABS: BILIRUBIN, TOTAL 0.9 mg/dL (0.0-1.4)
[2020-08-15 17:31] VITALS: BP 119/60
== END 2020-08-15 17:30 | disposition home or self-care (01) ==
LOC: ED 15:22
PROVIDERS: Family Medicine
DX: R40.0 Somnolence (principal); T42.6X5A Adverse effect of other antiepileptic and sedative-hypnotic drugs, initial encounter; T48.1X5A Adverse effect of skeletal muscle relaxants [neuromuscular blocking agents], initial encounter; T43.215A Adverse effect of selective serotonin and norepinephrine reuptake inhibitors, initial encounter; I10 Essential (primary) hypertension; C90.00 Multiple myeloma not having achieved remission; B02.29 Other postherpetic nervous system involvement

== ENCOUNTER 2020-08-16 16:28 | Inpatient (IN) | payer MEDICARE ==
[~2020-08-16] VITALS: Ht 165.1 cm; Wt 74.9 kg
--- NOTE | 2020-08-16 16:28 | NUR ---
PATIENT TO ROOM VIA EMS STRETCHER.
--- NOTE | 2020-08-16 16:50 | NUR ---
NO SHORTENING OR ROTATION NOTED, NO BRUISING NOTED TO AREA OF PAIN
--- NOTE | 2020-08-16 17:00 | NUR ---
PT STATES PAIN MEDICATION HELPED A LITLE, BUT HURTS TO TURN LEFT LEG OUT, GOOD PEDAL PULSE. PT ALERT/ORIENTED X3.
--- NOTE | 2020-08-16 18:13 | NUR ---
PLACED PILLOW UNDER LEFT LEG FOR COMFORT
[2020-08-16 18:21] LABS: HEMATOCRIT 31.4 % (37.0-47.0); HEMOGLOBIN 10.1 g/dl (12.0-16.0); IMMATURE GRANULOCYTES 1.4 % (0.0-5.0); MEAN CORPUSCULAR HGB 32.2 pG CALC (26.0-32.0); MEAN CORPUSCULAR HGB CONC 32.2 g/dL CAL (32.0-36.0); NEUT# 3.09 thou/uL (2.00-7.15); RED BLOOD COUNT 3.14 mill/uL (4.20-5.60); RED CELL DISTRI WIDTH 14.8 % (11.5-15.5)
[2020-08-16 18:34] LABS: ALBUMIN 2.9 g/dL (3.2-5.0); ALKALINE PHOSPHATASE 149 u/l (38-126); ANION GAP 5 (6-22 (CALC)); BILIRUBIN, TOTAL 1.3 mg/dL (0.0-1.4); BUN 23 mg/dL (8-23); BUN/CREATININE RATIO 28 (12-20 (CALC)); CARBON DIOXIDE 36 mmol/l (22-30); CHLORIDE 101 mmol/l (95-108); CREATININE 0.8 mg/dL (0.5-1.0); GFR > 60 ML/MIN (>=60 (CALC)); GFR FOR AFR.AMER. > 60 ML/MIN (>=60 (CALC)); POTASSIUM 3.8 mmol/l (3.5-5.1); SGOT/AST 50 u/l (9-36); SODIUM 138 mmol/l (137-146); TOTAL PROTEIN 5.8 g/dL (6.3-8.2)
[2020-08-16 18:44] LABS: INTERNATIONAL NORMALIZED RATIO 1.2 RATIO (0.7-1.3); PROTHROMBIN TIME 12.1 SECONDS (9.0-12.5)
[2020-08-16 18:48] LABS: URINE BILIRUBIN - DIPSTICK NEGATIVE (NEGATIVE); URINE BLOOD DIPSTICK TRACE-INTACT (NEGATIVE); URINE COLOR YELLOW; URINE GLUCOSE - DIPSTICK NEGATIVE (NEGATIVE); URINE KETONE NEGATIVE (NEGATIVE); URINE NITRITE - DIPSTICK NEGATIVE (Negative); URINE PH 6.5 (4.5-8.0); URINE PROTEIN - DIPSTICK NEGATIVE (NEG-TRACE); URINE UROBILINOGEN - DIPSTICK 0.2 E.U./dL (0.2)
[2020-08-16 18:53] LABS: URINE LEUK ESTERASE SMALL (NEGATIVE)
[2020-08-16 19:00] LABS: URINE RBC 0-2 RBC/hpf (0-5); URINE SQUAMOUS EPITHELIAL CELL FEW EPI/hpf (0-FEW)
--- NOTE | 2020-08-16 19:12 | NUR ---
REPORT GIVEN TO GRACE FOR CONTINUATION OF CARE.
[2020-08-16 19:30] VITALS: BP 113/63
--- NOTE | 2020-08-16 19:33 | NUR ---
PATIENT TAKEN TO INPATIENT TREATMENT ROOM BY PAUL, RM 280, UNABLE TO VERIFY HOME MEDICATIONS AT TIME OF TRANSFER, STATES THAT HE WILL CALL INPATIENT NURSE ONCE HE GETS HOME TO GO OVER ALL OF THE PATIENTS HOME MEDS.
--- NOTE | 2020-08-16 19:35 | NUR ---
PT ARRIVED TO MED SURG UNIT VIA STRETCHER ACCOMPANIED BY ED NURSE. PT TRANSFERRED TO BED FROM STRETCHER BY SLIDING, TOLERATED WELL WITH MINIMAL REPORT OF PAIN. PT POSITIONED IN BED FOR COMFORT AND ADMISSION/ASSESSMENT COMPLETED AT THIS TIME.
--- NOTE | 2020-08-16 20:45 | NUR ---
SHERIDAN, PTS DAUGHTER CALLED,PTS PERMISSION TO SPEAK WITH HER CONFIRMED AT THIS TIME. DAUGHTER EXPRESSED CONCERNS REGARDING PAIN MEDICATION BEING ADMINISTERED. SHE REPORTS THAT HER MOTHER HAS HAD PROBLEMS WITH PAIN MEDICATION ADDITION IN THE PAST, SPECIFICALLY OXYCODONE. SHE REPORTS THAT IS PART OF WHY HER MOTHER FELL, DUE TO BEING "OUT OF IT FROM MEDICATIONS."
--- NOTE | 2020-08-16 21:12 | NUR ---
PT MEDICATED ORDERS PROVIDE. ASSISTED DRINKING WATER. DENIES ANY OTHER NEEDS. PT WAS SLEEPING I ENTERED AND IS CLOSING EYES I LEAVE THE ROOM. CALL LIGHT W/IN REACH AND PT ENCOURAGED TO CALL NEEDS ARISE.
--- NOTE | 2020-08-17 00:21 | NUR ---
PT SLEEPING, NO S/O DISTRESS NOTED. CALL LIGHT W/IN REACH. PT ASSISTED W/PO FLUIDS AND REPOSITIONED PILLOWS FOR COMFORT. PT DENIES ANY OTHER NEEDS AT THIS TIME.
[2020-08-17 04:00] VITALS: BP 124/66
--- NOTE | 2020-08-17 04:49 | NUR ---
PT SLEEPING, V/S ASSESSED, DENIES ANY NEEDS AT THIS TIME. CALL LIGHT W/IN REACH.
[2020-08-17 08:06] VITALS: BP 120/56
--- NOTE | 2020-08-17 08:35 | NUR ---
SHIFT CHANGE REPORT, PT AWAKE AND ALERT, C/O THROBBING PAIN TO LEFT HIP, SHT HAS CHAPPED BLEEDING LIPS AT THIS TIME, MOUTH CARE GIVEN AND MOISTERISER APPLIED, SPOUST AT BEDSIDE, WILL CONTINUE TO MONITOR.
--- NOTE | 2020-08-17 10:46 | NUR ---
PT,S DAUGHTER FRANKLIN RANGEL REPORTED SHE SPOKE TO FLIGHT OPERATIONS SPECIALIST (DION) WHO ADVISED HER LYRICA SHOULD BE D/C, HOWEVER SIGNIFICANT OTHER (PARIS) STATED HE WAS ADVISED BY DR MCMILLAN TO CHANGE LYRICA TO ONCE DAILY.FRANKLIN ADVISED SHE NEEDS TO ADDRESS ISSUE WITH MD AT THIS TIME, PT IS ALERT AND ORIENTED AND ABLE TO MAKE DECISIONS.
--- NOTE | 2020-08-17 11:02 | NUR ---
DR LEES NORIFIED OF COFLICTING REPORT WITH SIGNIFICANT OTHER AND DAUGHTER AND STATED ORDERS WILL REMAIN IS.
[2020-08-17 15:00] VITALS: BP 116/55
--- NOTE | 2020-08-17 16:55 | NUR ---
ASSISTED PT ON AND OFF BEDPAN, C/O SEVEE PAIN WITH MOVEMENT. ORDER FOR ROXICODONE 10MG FROM 15 TABS, CARDINAL NOTIFIED AND CHANGE TO 5MG X 2
[2020-08-17 19:00] VITALS: BP 110/56
--- NOTE | 2020-08-17 21:39 | NUR ---
PT MEDICATED ORDERS PROVIDE AND ASSESSMENT COMPLETED AT THIS TIME. NO S/O DISTRESS NOTED. PT MEDICATED FOR PAIN 7/10 ON PAIN SCALE. POC DISCUSSED WITH PT. SNACK PROVIDED AT THIS TIME. PT VOICED UNDERSTANDING THAT SHE WILL BE NPO AFTER MIDNIGHT. PT INFORMED THAT HER FIANCE' CALLED TO LET HER KNOW HE MADE IT HOME AND OR CALLED TO REPORT THAT DR. KURTZ WILL BE IN TO SEE HER FIRST THING IN THE MORNING. PT VERBALIZED UNDERSTANDING TO ALL. LOCX4 AT THIS TIME. PT DOES APPEAR A LITTLE SHAKY IN THE HANDS WHILE TAKING PILLS/ASSISTED. STRONG PEDAL PULSE AND CIRCULATION OBSERVED TO BLE.
--- NOTE | 2020-08-17 22:38 | NUR ---
NEW IV SITE OBTAINED TO REPLACE EMS SITE. 20 IN RIGHT WRIST ACCESSED, PT TOLERATED WELL. PT IS LAUGHING AT TV AND DRIFTING IN AND OUT OF SLEEP, NO S/O DISTRESS OR PAIN AT THIS TIME. PT JUST FINISHED EATING PEANUT BUTTER AND CRACKERS. LIGHTS TURNED LOW AND BED POSITIONED FOR COMFORT AND IN LOWEST POSITION. BED ALARM ON FOR SAFETY.
--- NOTE | 2020-08-17 23:49 | NUR ---
PT AWAKE, ASSISTED REPOSITIONING IN THE BED. DENIES ANY OTHER NEEDS AT THIS TIME. CALL LIGHT W/IN REACH AND PT ENCOURAGED TO CALL NEEDS ARISE.
[2020-08-18] VITALS (15 sets, daily range): BP systolic 89–130; BP diastolic 40–72
--- NOTE | 2020-08-18 04:28 | NUR ---
PT MEDICATED FOR PAIN IN PREP FOR BEDPAN USAGE AND TURNING.
[2020-08-18 05:07] LABS: HEMATOCRIT 30.6 % (37.0-47.0); HEMOGLOBIN 9.9 g/dl (12.0-16.0); MEAN CELL VOLUME 99.7 fL CALC (80.0-100.0); MEAN CORPUSCULAR HGB 32.2 pG CALC (26.0-32.0); MEAN CORPUSCULAR HGB CONC 32.4 g/dL CAL (32.0-36.0); NEUT# 3.8 thou/uL (2.00-7.15); RED BLOOD COUNT 3.07 mill/uL (4.20-5.60); RED CELL DISTRI WIDTH 14.6 % (11.5-15.5)
--- NOTE | 2020-08-18 05:19 | NUR ---
PT note Patient is screened for rehab intervention and she would benefit from PT and OT referral
[2020-08-18 05:28] LABS: ALBUMIN 2.6 g/dL (3.2-5.0); ALKALINE PHOSPHATASE 142 u/l (38-126); ANION GAP 7 (6-22 (CALC)); BILIRUBIN, TOTAL 1.5 mg/dL (0.0-1.4); BUN 24 mg/dL (8-23); BUN/CREATININE RATIO 33 (12-20 (CALC)); CARBON DIOXIDE 30 mmol/l (22-30); CHLORIDE 103 mmol/l (95-108); CREATININE 0.7 mg/dL (0.5-1.0); GFR > 60 ML/MIN (>=60 (CALC)); GFR FOR AFR.AMER. > 60 ML/MIN (>=60 (CALC)); POTASSIUM 3.7 mmol/l (3.5-5.1); SGOT/AST 29 u/l (9-36); SODIUM 137 mmol/l (137-146); TOTAL PROTEIN 5.2 g/dL (6.3-8.2)
--- NOTE | 2020-08-18 07:28 | NUR ---
RECEIEVED REPORT FROM DEMETRICE MELENDEZ. PT RESTING IN SEMI FOWLERS POSITION UPON ENTERING ROOM. INTRODUCED SELF TO PT AND DISCUSSED POC. ASSESSMENT AND VITALS COMPLETED AT THIS TIME. BP 130/72, HR 63, O2 94% ON ROOM AIR. RESPIRATIONS ARE EVEN AND UNLABORED WITH NO SIGNS OF DISTRESS NOTED. LUNG SOUNDS ARE CLEAR. HEART RHYTHM IS NORMAL WITH. BOWEL SOUNDS ARE ACTIVE IN ALL QUADRANTS. LAST REPORTED BM 08/17/2020. RADIAL AND PEDAL PULSES ARE STROG WITH NORMAL CAPILLARY REFILL. #20 EMS IN LEFT WRIST FLUSHED, SITE APPEARS HEALTHY AND PATENT. #20 IN RW FLUSHED, EDEMA NOTED.IV REMOVED WITH CATHATER STILL INTACT. ATTEMPTED TO START NEW IV SITE. SUCCESSFUL TWICE. CASPER ASKED TO ATTEMPT. PT COMPLAINS OF 7/10 LEFT HIP PAIN. WRITTER INFORMED PT MORPHINE WAS NOT DUE YET AND DUE TO NPO STATUS VEL WAS NOT AVAILABLE. PT VERBALIZED UNDERSTANDING. PT DENIES OF ANY OTHER PAINS OR DISCOMFORTS AT THIS TIME. ALL SAFETY PERCAUTIONS ARE IN PLACE. WILL CONTINUE TO MONITOR
--- NOTE | 2020-08-18 08:28 | NUR ---
DR FIELDS AT BEDSIDE DISCUSSING POC WITH PT
--- NOTE | 2020-08-18 08:47 | NUR ---
OR AT BEDSIDE TO TRANSPORT PT TO OR. PT TRANSPORTED TO OR BY BED VIA BED IN STABLE CONDITION. DAUGHTER ASKED TO BE CALLED WHEN DOCTOR SPEAKS TO PT . OR STAFF INFORMED AND DAUGHTER NUMBER PROVIDED.
--- NOTE | 2020-08-18 09:15 | NUR ---
PT JAMILA NOTIFIED OF 1 PILL LEFT OF HOME MEDICATION. JAMILA STATED " SHE ONLY TAKE IT EVERY OTHER WEEK. TONIGHT WILL BE THE LAST ONE AND THEN SHE WONT TAKE IT AGAIN UNTIL TUESDAY." WRITTER INFORMED JAMILA THAT IF PT IS STILL HERE, THE REFILL WILL NEED TO BE BRIGHT TO HOSPITAL. JAMILA VERBAILZED UNDERSTANDING.JAMILA REMAINS IN ROOM AT THIS TIME.
--- NOTE | 2020-08-18 13:47 | NUR ---
PT ARRIVED BACK TO [facility] ROOM 280 VIA BED ACCOMPAINED BY OR STAFF FROM LEFT HIP ARTHROPLASTY. BEDSIDE REPORT RECIEVED FROM OR . PT A/O BUT DROWSY. RESPRATIONS ARE EVEN AND UNLABORED WITH NO SIGNS OF DISTRESS NOTED ON 2L NC. DRESSING TO LEFT HIP CDI. ABDUCTOR IN PLACE. PT COMPLAINS OF 9/10 PAIN. WRITTER INFORMED PT THAT PAIN MEDICATION WAS NOT AVAILABLE YET DUE TO BP RESULTING IN 98/48. PT VERBAILZED UNDERSTANDING. BETTYANRP NOTIFIED OF PAIN SCALE AND BP. ALL SAFETY PRECAUTIONS ARE IN PLACE WITH CALL LIGHT IN REACH. WILL CONTINUE TO MONITOR
--- NOTE | 2020-08-18 14:40 | NUR ---
RESULTING BP OF 86/41, HR 56. KALPANA HERNÁNDEZ NOTFIFIED. ORDERED TO BOLUS REMAINING IV FLUIDS AND REASSESSMENT IN AN HOUR. RESPIRATIONS ARE EVEN AND UNLABORED. PT COMPLAINS OF 10/10 PAIN. KALPANA HERNÁNDEZ NOTIFIED OF PAIN SCALE
--- NOTE | 2020-08-18 16:10 | NUR ---
REASSESSMENT OF PAIN RESULTING IN 04/16. RESPIRATIONS ARE EVEN AND UNLABORED WITH NO SIGNS OF DISTRESS NOTED. PT IS A/O BUT DROWSY. NO SIGNS OF DISCOMFORTS AT THIS TIME. ALL SAFTEY PRECAUTIONS ARE IN PLACE WITH CALL LIGHT IN REACH. WILL CONTINUE TO MONITOR
--- NOTE | 2020-08-18 19:20 | NUR ---
BRIANNESANTA IS AT BEDSIDE. PT C/O PAIN, COMING IN AND OUT OF SLEEP, SOME MOANING. MONITORING BP FOR PAIN MEDICATION ADMINISTRATION. DISCUSSED POC WITH SANTINO AND RECEIVED HIS PHONE NUMBER FOR CONTACT SHOULD ISSUES ARISE. PT APPEARS CALM WHEN NOT SPOKEN TO OR FORCED TO WAKE.
--- NOTE | 2020-08-18 20:20 | NUR ---
PT MEDICATED FOR PAIN ORDERS ARISE. WILL MONITOR BP CLOSELY FOR RESPONSE. NO S/O DISTRESS NOTED AT THIS TIME.
--- NOTE | 2020-08-18 22:33 | NUR ---
TEACHER CCLC'S IN WITH PT PLACING PUREWICK, PT TOLERATED WITH MODERATE AMOUNT OF PAIN UPON MOVING. PT POSITIONED FOR COMFORT WITH WEDGE IN PLACE. IVF REPLENISHED AT THIS TIME. SITE APPEARS HEALTHY. DRESSING TO LEFT HIP AREA CDI. V/S ASSESSED AT THIS TIME, BP STABLE.
[2020-08-19 02:20] VITALS: BP 97/57
--- NOTE | 2020-08-19 02:23 | NUR ---
PT SLEEPING, V/S ASSESSED, PT AWOKE MUMBLING IN SLEEP SLIGHTLY, BUT DID NOT OPEN EYES. NO S/O DISTRESS NOTED. INCISIONAL DRESSING TO L.HIP CDI, SCD ON TO RLE, FEET COOL TO TOUCH WITH STRONG PEDALS.
--- NOTE | 2020-08-19 03:35 | NUR ---
PT ATTEMPTING TO URINATE, VERBALIZES NOT WANTING A TREVINO CATHETER PLACED AT THIS TIME. WATER RUNNING FOR BLADDER ENCOURAGEMENT. PUREWICK IN PLACE, NO URINE OUTPUT AT THIS TIME.
--- NOTE | 2020-08-19 03:40 | NUR ---
IV ANTIBIOTIC THERAPY ADMINISTERED AND PT MEDICATED FOR PAIN 8/10 ON PAIN SCALE. NO URINARY OUTPUT IN PUREWICK CONTAINER SO PT WAS TURNED TO CHECK FOR URINARY INCONTINENCE OR LEAKAGE, PT IS DRY. BLADDER SCANNED PT @507CC OF URINE SHOWING IN BLADDER. I TALKED W/PT REGARDING THE POSSIBILITY OF NEEDING CATHETER PLACED FOR URINARY RETENTION AND THAT SHE NEEDED TO TRY AND URINATE, SHE VERBALIZED UNDERSTANDING.
[2020-08-19 03:55] VITALS: BP 92/64
--- NOTE | 2020-08-19 04:40 | NUR ---
PT BLADDER SCANNED 556CC TO BLADDER PER SCANNER WITH CENTERED SCAN. PT IS STILL UNABLE TO URINATE. CONSENT PAPERWORK FILLED OUT AND REVIEWED WITH PT, SHE REFUSES TO SIGN AND CONSENT TO SCAN. WILL CONTINUE TO MONITOR FOR URINARY OUTPUT. REPORTS MILD PRESSURE TO BLADDER AT THIS TIME. PT LOCX3.
[2020-08-19 06:04] LABS: MEAN CELL VOLUME 100.9 fL CALC (80.0-100.0); MEAN CORPUSCULAR HGB 32.6 pG CALC (26.0-32.0); MEAN CORPUSCULAR HGB CONC 32.3 g/dL CAL (32.0-36.0); RED BLOOD COUNT 2.21 mill/uL (4.20-5.60); RED CELL DISTRI WIDTH 14.9 % (11.5-15.5)
[2020-08-19 06:09] LABS: HEMATOCRIT 22.3 % (37.0-47.0); HEMOGLOBIN 7.2 g/dl (12.0-16.0)
[2020-08-19 06:31] LABS: BUN 28 mg/dL (8-23); BUN/CREATININE RATIO 31 (12-20 (CALC)); CARBON DIOXIDE 27 mmol/l (22-30); CHLORIDE 106 mmol/l (95-108); CREATININE 0.9 mg/dL (0.5-1.0); GFR > 60 ML/MIN (>=60 (CALC)); GFR FOR AFR.AMER. > 60 ML/MIN (>=60 (CALC)); MAGNESIUM 1.7 mg/dL (1.6-2.3); SODIUM 137 mmol/l (137-146)
[2020-08-19 06:34] LABS: ANION GAP 9 (6-22 (CALC)); POTASSIUM 4.7 mmol/l (3.5-5.1)
[2020-08-19 07:34] VITALS: BP 91/54
--- NOTE | 2020-08-19 10:36 | NUR ---
PT'S SON IN LAW GILDARDO RANGEL WAS UPDATED BY PHONE. HIS NUMBER IS [phone] AND HE ASKS TO BE CALLED IF THERE ARE ANY CHANGES IN STATUS.
--- NOTE | 2020-08-19 11:04 | NUR ---
PT SEEN AWAKE, ALERT, UNCOMFORTABLE WITH LEFT HIP PAIN. WEDGE SEEN IN PLACE AFTER YESTERDAY'S TOTAL HIP. PT WAS BLADDER SCANNED FOR 664 ML, WAS PLACED ON A BEDPAN, DID VOID INTO PUREWICK THAT WAS IN PLACE. PT MEDICATED FOR PAIN NEEDED. FIANCE AT BEDSIDE. SON-IN-LAW GILDARDO UPDATED ON PHONE.
--- NOTE | 2020-08-19 12:49 | NUR ---
PT SEEN RESTING IN THE BED WITH EYES CLOSED, NO DISTRESS NOTED.
[2020-08-19 16:15] VITALS: BP 93/57
--- NOTE | 2020-08-19 17:52 | NUR ---
PT PLACED ON BEDPAN, RESULTS WERE SMALL BM. PT UNCOMFORTABLE AFTER, WAS PROVIDED PAIN MED FOR SAME.
[2020-08-19 19:00] VITALS: BP 91/55
--- NOTE | 2020-08-19 20:03 | NUR ---
ASSESSMENT AND VITALS COMPLETED AT THIS TIME. RESPIRATIONS ARE CLEAR. NO SIGNS OF DISTRESS, O2 SAT 95% RA. HEART RHYTHM WAS HEARD NORMAL. BOWEL SOUNDS ARE ACTIVE IN ALL QUADRANTS, LAST REPORTED BM 08/19/20. RADIAL AND PEDAL PULSES ARE STRONG WITH NORMAL CAPILLARY REFILL. SKIN IS INTACT. PT HAS PURWICK IN PLACE. PT DENIES ANY PAIN OR ADDITIONAL NEEDS AT THIS TIME. ALL SAFETY PRECAUTIONS ARE IN PLACE WITH CALL LIGHT IN REACH. WILL CONTINUE TO MONITOR.
[2020-08-20] VITALS (11 sets, daily range): BP systolic 97–114; BP diastolic 34–79
--- NOTE | 2020-08-20 00:03 | NUR ---
PT LAYING IN BED WITH EYES CLOSED, APPEARS TO BE SLEEPING, APPEARS COMFORTABLE AND IN NO DISTRESS. RESPIRATIONS REGULAR AND UNLABORED. ITEMS REMAIN WITHIN REACH, CALL GARCIA REMAINS WITHIN REACH. BED REMAINS LOCKED AND IN LOW POSITION WITH BEDRAILS UP X2. WILL CONTINUE TO MONITOR.
--- NOTE | 2020-08-20 04:03 | NUR ---
PT RESTING IN BED, NO SIGNS OF DISTRESS NOTED, RESP EVEN AND UNLABORED. PT VOICES NO NEEDS OR COMPLAINTS AT THIS TIME. CALL LIGHT IN REACH. WILL CONTINUE TO MONITOR.
[2020-08-20 06:54] LABS: MEAN CORPUSCULAR HGB 32.6 pG CALC (26.0-32.0); MEAN CORPUSCULAR HGB CONC 32.6 g/dL CAL (32.0-36.0); NEUT# 7.34 thou/uL (2.00-7.15); RED BLOOD COUNT 1.9 mill/uL (4.20-5.60); RED CELL DISTRI WIDTH 15.2 % (11.5-15.5)
[2020-08-20 06:56] LABS: ANION GAP 6 (6-22 (CALC)); BUN 36 mg/dL (8-23); BUN/CREATININE RATIO 37 (12-20 (CALC)); CARBON DIOXIDE 26 mmol/l (22-30); CHLORIDE 108 mmol/l (95-108); GFR 54 ML/MIN (>=60 (CALC)); GFR FOR AFR.AMER. > 60 ML/MIN (>=60 (CALC)); POTASSIUM 4.2 mmol/l (3.5-5.1); SODIUM 136 mmol/l (137-146)
[2020-08-20 07:01] LABS: HEMOGLOBIN 6.2 g/dl (12.0-16.0)
--- NOTE | 2020-08-20 07:15 | NUR ---
REPORT RECEIVED FROM DEMETRICE VIRGEN. PT RESTING IN BED SEMI FOWLERS; ALERT AND ORIENTED X 3. C/O 8/10 LEFT HIP PAIN WITH MOVEMENT; GAUZE AND TEGADERM DRESSING CDI. RESPIRATIONS EVEN AND UNLABORED ON ROOM AIR. IV FLUIDS INFUSING WITHOUT DIFFICULTY; IV SITE APPEARS HEALTHY. LAB CALLED WITH CRITICAL RESULT AT 0700; HGB 6.2 HCT 19; NOTIFIED AND ORDERS RECEIVED FOR 2 UNITS OF PRBCS; PT UPDATED. SCD TO RLE; IS AT BEDSIDE. PLAN OF CARE REVIEWED. PT ENCOURAGED TO VERBALIZE CONCERNS. STATES UNDERSTANDING. SAFETY MEASURES IN PLACE. CALL LIGHT WITHIN REACH.
--- NOTE | 2020-08-20 08:00 | NUR ---
ASSISTED ONTO BEDPAN TO VOID; ABDUCTOR PILLOW IN PLACE BETWEEN LEGS; SEVERE PAIN WITH TURNING. DILAUDID GIVEN IV. DRESSING TO LEFT HIP REMOVED PER POST OP ORDERS AND DERMABOND LEFT INTACT; INCISION IS WELL APPROXIMATED. SWELLING AND BRUISING SURROUNDING AREA TO HIP AND LEG. WEAK PEDAL PULSES BILATERALLY. CONSENT OBTAINED FOR BLOOD TRANSFUSION.
--- NOTE | 2020-08-20 08:49 | NUR ---
BLOOD TRANSFUSION INITIATED; PT EXPLAINED S/S OF TRANSFUSION REACTION. AT BEDSIDE.
--- NOTE | 2020-08-20 08:54 | NUR ---
CASE MANAGEMENT AT BEDSIDE TO DISCUSS DC PLAN TO GO TO [facility] IN [place].
--- NOTE | 2020-08-20 09:07 | NUR ---
DR. FIELDS AT BEDSIDE.
--- NOTE | 2020-08-20 11:48 | NUR ---
SECOND UNIT OF BLOOD TRANSFUSING AT THIS TIME. PT ASSISTED ONTO BED FOR VOID; ALSO HAS PURWIK CATHETER COLLECTING CLOUDY BROWN URINE. PAIN IS A 7/10 WITH MOVEMENT ONTO BEDPAIN; ROXICODONE GIVEN.
--- NOTE | 2020-08-20 14:38 | NUR ---
BLOOD TRANSFUSION OF 2 UNITS COMPLETED. PT NOW TEARFUL AND C/O SEVERE NERVE PAIN TO LEFT SHOULDER AND LEFT UPPER BACK DUE TO HX OF SHINGLES IN THAT AREA; PT DOES NOT HAVE A CURRENT SHINGLES OUTBREAK, BUT REPORTS THAT SHE ALWAYS HAVE THE NERVE PAIN. RELAXATION TECHNIQUES ENCOURAGED. WILL CONTINUE TO MONITOR.
--- NOTE | 2020-08-20 20:05 | NUR ---
PT RESTING IN BED, NO SIGNS OF DISTRESS NOTED, RESP EVEN AND UNLABORED. PT C/O PAIN 05/16 AFTER RECEIVING DILAUDID, PT MEDICATED WITH ROXICODONE, DISCUSSED POC, SURGICAL INCISION TO LEFT HIP JAN SECURED WITH DERMABOND, ABDUCTOR PILLOW IN PLACE. PURE WICK DRAINING BROWN COLORED URINE, ASSESSMENT COMPLETED, CALL LIGHT IN REACH,CONTINUE TO MONITOR.
--- NOTE | 2020-08-20 23:23 | NUR ---
PT RESTING IN BED WITH EYES CLOSED, NO SIGNS OF DISTRESS NOTED, RESP EVEN AND UNLABORED. CALL LIGHT IN REACH,CONTINUE TO MONITOR.
[2020-08-21 04:00] VITALS: BP 111/40
--- NOTE | 2020-08-21 04:00 | NUR ---
PT RESTING IN BED WITH EYES CLOSED, NO SIGNS OF DISTRESS NOTED, RESP EVEN AND UNLABORED. CALL LIGHT IN REACH,CONTINUE TO MONITOR.
[2020-08-21 05:36] LABS: MEAN CELL VOLUME 95.5 fL CALC (80.0-100.0); MEAN CORPUSCULAR HGB 30.9 pG CALC (26.0-32.0); MEAN CORPUSCULAR HGB CONC 32.4 g/dL CAL (32.0-36.0); RED BLOOD COUNT 2.88 mill/uL (4.20-5.60); RED CELL DISTRI WIDTH 16.1 % (11.5-15.5)
[2020-08-21 05:44] LABS: HEMATOCRIT 27.5 % (37.0-47.0); HEMOGLOBIN 8.9 g/dl (12.0-16.0)
[2020-08-21 06:06] LABS: ANION GAP 5 (6-22 (CALC)); BUN 32 mg/dL (8-23); BUN/CREATININE RATIO 39 (12-20 (CALC)); CARBON DIOXIDE 28 mmol/l (22-30); CHLORIDE 107 mmol/l (95-108); CREATININE 0.8 mg/dL (0.5-1.0); GFR > 60 ML/MIN (>=60 (CALC)); GFR FOR AFR.AMER. > 60 ML/MIN (>=60 (CALC)); POTASSIUM 3.9 mmol/l (3.5-5.1); SODIUM 137 mmol/l (137-146)
[2020-08-21 07:47] VITALS: BP 103/59
--- NOTE | 2020-08-21 07:47 | NUR ---
RECIEVED REPORT FROM ROLY PRADO. PT SLEEPING IN SEMI FOWLERS POSITION UPON ENTERING ROOM. PT EASE TO AWAKEN. INTRODUCED SELF TO PT AND DISCUSSED POC. PT IS A/OX3 AND POST OP DAY 3 OF LEFT HIP ARTHROPASTY. ASSESSMENT AND VITALS COMPLETED AT THIS TIME. BP 103/59, HR 82, O2 94% ON ROOM AIR. RESPIRATIONS ARE EVEN AND UNLABORED WITH NO SIGNS OF DISTRESS NOTED. LUNG SOUNDS ARE CLEAR. HEART RHYTHM IS NORMAL. BOWEL SOUNDS ARE ACTIVE IN ALL QUADRANTS, LAST REPORTED BM 08/20/2020. RADIAL AND PEDAL PULSES ARE STRONG WITH NORMAL CAPILLARY REFILL. #20 IN LAC FLUSHED, SITE APPEARS HEALTHY AND PATENT. DERMABOND ON LEFT HIP IS CDI WITH ABDUCTOR PILLOW IN PLACE. PT COMPLAINS OF 4/10 PAIN OF LEFT HIP, PT TO BE MEDICATED PER EMAR. PURE WHICK IN PLACE, TUBING UNKINKED AND SUCTION ACTIVATED. PT DENIES OF ANY OTHER DISCOMFORTS AT THIS TIME. ALL SAFETY PRECAUITONS ARE IN PLACE WITH CALL LIGHT IN REACH. WILL CONTINUE TO MONITOR.
--- NOTE | 2020-08-21 08:55 | NUR ---
DR. FIELDS AT BEDSIDE DISCUSSING POC WITH PT
--- NOTE | 2020-08-21 09:03 | NUR ---
PT AT BEDSIDE WORKING WITH PT
[2020-08-21] MEDS ORDERED: OXYCODONE10 M1 PO (11:24)
[2020-08-21 11:28] VITALS: BP 109/71
--- NOTE | 2020-08-21 12:00 | NUR ---
PT IS A/OX3. RESPIRATIONS ARE EVEN AND UNLABROED WIHT NO SIGNS OF DISTRESS NMOTED, PT COMPLAINS OF 4/10 PAIN IN LEFT HIP AND LEFT SHOULDER. NEW #24G STATERED IN LFA. #20G IN LAC LEAKING, REMOVED WITH CATHATER STILL INTACT. PT TOLERATED WELL. PT TO BE MEDICATED PER EMAR.all sfaety precautions are in place wiht spouse at bedside. will continue to monitor
--- NOTE | 2020-08-21 13:29 | NUR ---
REASSESSMENT OF PAIN AT THIS TIME. RESULTING IN 12/17. PT EDUCATED ON DISCHARGE INSTRUCTIONS AT THIS TIME. PT VERBAILZED UNDERSTANDING. IV REMOVED WITH CATHATER STILL INTACT. PT TOLERATED WELL. ALL SAFETY PRECAUTIONS ARE IN PLACE. AWAITING FOR TRASNPORTATION TO [facility]. WILL CONTINUE TO MONITOR
--- NOTE | 2020-08-21 14:04 | NUR ---
PT AMBULATING WITH PT IN FORREST.
--- NOTE | 2020-08-21 15:21 | NUR ---
Discharge instructions given. Patient verbalizes understanding of same. Discharged in stable condition via Wheelchair to [facility] with staff. All belongings sent with pt. PT DISCHANGED IN STABLE CONDITION TO [facility]IA [facility] BY MEDICAL TRANSPORT WITH SPOUSE AT BEDSIDE. PT DISCHARGED WITH ALL BELONGINGS AND DISCHARGE PAPERWORK.
--- NOTE | 2020-08-21 15:22 | NUR ---
pt was seen by PT for gait training. min assist to transfer from supine in bed to sitting on EOB. Min assist to stand at RW then ambulated 25ft x2. ampac =12
--- NOTE | 2020-08-21 15:44 | NUR ---
REPORT CALLED TO [facility] AT [facility] .
== END 2020-08-21 15:28 | DRG 522 ==
LOC: ED 16:28 → ED-I 17:33 → ED 18:48 → MS2 18:49
PROVIDERS: Emergency Medicine; Nurse Practitioner; Physician Assistant; ADMIT Internal Medicine; ATTEND Internal Medicine
PROC: 0SRB0JA Replacement of Left Hip Joint with Synthetic Substitute, Uncemented, Open Approach (ICD-10-PCS; principal; 2020-08-18)
PROC: 30233N1 Transfusion of Nonautologous Red Blood Cells into Peripheral Vein, Percutaneous Approach (ICD-10-PCS; 2020-08-20)
PROC: 30233N1 Transfusion of Nonautologous Red Blood Cells into Peripheral Vein, Percutaneous Approach (ICD-10-PCS; 2020-08-20)
DX: S72.012A Unspecified intracapsular fracture of left femur, initial encounter for closed fracture (principal); C90.00 Multiple myeloma not having achieved remission; D62 Acute posthemorrhagic anemia; R44.3 Hallucinations, unspecified; B02.29 Other postherpetic nervous system involvement; T43.215A Adverse effect of selective serotonin and norepinephrine reuptake inhibitors, initial encounter; T42.6X5A Adverse effect of other antiepileptic and sedative-hypnotic drugs, initial encounter; T48.1X5A Adverse effect of skeletal muscle relaxants [neuromuscular blocking agents], initial encounter; T38.0X5A Adverse effect of glucocorticoids and synthetic analogues, initial encounter; I10 Essential (primary) hypertension; M19.90 Unspecified osteoarthritis, unspecified site; F32.9 Major depressive disorder, single episode, unspecified; J44.9 Chronic obstructive pulmonary disease, unspecified; F41.9 Anxiety disorder, unspecified; R74.8 Abnormal levels of other serum enzymes; D63.0 Anemia in neoplastic disease; M25.511 Pain in right shoulder; G89.29 Other chronic pain; W01.0XXA Fall on same level from slipping, tripping and stumbling without subsequent striking against object, initial encounter; Y92.000 Kitchen of unspecified non-institutional (private) residence as the place of occurrence of the external cause; Z91.81 History of falling; Z79.899 Other long term (current) drug therapy; Z87.891 Personal history of nicotine dependence; Z20.828 Contact with and (suspected) exposure to other viral communicable diseases; R40.0 Somnolence
CPT/HCPCS: C1713; J1100; J1650; J2710; P9016